=== PATIENT | female | born 1965 | race Hispanic/Latino ===

== ENCOUNTER 2020-09-20 20:38 | Emergency (ER) | payer BC ==
[~2020-09-20] VITALS: Ht 158.8 cm; Wt 68.0 kg
[~2020-09-20 20:38] MED LIST: COPAXONE20 MG/KIT SC; CYCLOBENZAPRINE10 MG PO; METHOTREXATE; TYLENOL WITH C1 EACH PO
[2020-09-20] MEDS ORDERED: KETOROLAC TROMETHAMINE 30 MG/ML VIAL IV STA (21:14)
[2020-09-20 21:24] LABS: BASOPHILS # (AUTO) 0.1 (0.0-0.1); BASOPHILS % 0.6 % (0.0-1.0); EOSINOPHILS # (AUTO) 0.2 (0.0-0.4); EOSINOPHILS % 1.4 % (0.0-6.0); HEMATOCRIT 45.3 % (34.2-44.1); HEMOGLOBIN 14.5 g/dL (12.0-16.0); LYMPHOCYTES # (AUTO) 2.1 (1.0-3.2); LYMPHOCYTES % 19.4 % (18.0-39.1); MEAN CORPUSCULAR HEMOGLOBIN 27.3 pg (28-32); MEAN CORPUSCULAR VOLUME 85.2 fL (81-99); MONOCYTES # (AUTO) 0.8 (0.2-0.8); NEUTROPHILS # (AUTO) 7.7 (2.1-6.9); NEUTROPHILS % 71.2 % (38.7-80.0); PLATELET COUNT 414 x10e3/uL (140-360); RED BLOOD COUNT 5.32 x10e6/uL (3.6-5.1); RED CELL DISTRIBUTION WIDTH 13.3 % (11.7-14.4)
[2020-09-20] MEDS ORDERED: KETOROLAC TROMETHAMINE 30 MG/ML VIAL ONE (21:25)
[2020-09-20 21:39] LABS: COLOR,URINE AMBER (YELLOW)
[2020-09-20 21:40] LABS: CLARITY,URINE CLEAR (CLEAR); KETONES,URINE NEGATIVE (NEGATIVE); LEUKOCYTE ESTERASE ,URINE TRACE (NEGATIVE); NITRITE,URINE POSITIVE (NEGATIVE); PROTEIN,URINE DIPSTICK TRACE (NEGATIVE); URINE UROBILINOGEN 1 mg/dL (0.2 - 1)
[2020-09-20 21:41] LABS: BACTERIA,URINE MODERATE /HPF; EPITHELIAL CELLS,URINE MANY /LPF; WBC,URINE (MAN) >50 /HPF (0-5)
[2020-09-20 21:43] LABS: ANION GAP 13.8 mmol/L (8-16); BLOOD UREA NITROGEN 13 mg/dL (7-26); BUN/CREATININE RATIO 16 (6-25); CALCIUM 9.2 mg/dL (8.4-10.2); CARBON DIOXIDE 25 mmol/L (22-29); CHLORIDE 105 mmol/L (98-107); CREATININE, SERUM 0.81 mg/dL (0.57-1.11); EST GLOMERULAR FILTRATION RATE > 60 ML/MIN (60-); GLUCOSE 156 mg/dL (74-118); POTASSIUM 3.8 mmol/L (3.5-5.1); SODIUM 140 mmol/L (136-145)
[2020-09-20] MEDS ORDERED: CEFTRIAXONE SOD 1 GM/50 ML BAG IV ONE (22:45)
[2020-09-20] MEDS ORDERED: CEFTRIAXONE SOD 1 GM in SODIUM CHLORIDE 0.9% 50ML 50 ML IV ONE (23:00)
[2020-09-20 23:34] VITALS: BP 145/91
== END 2020-09-20 23:38 | disposition home or self-care (01) ==
LOC: ER 21:16
DX: M54.5 Low back pain (principal); R11.0 Nausea; R30.0 Dysuria; N39.0 Urinary tract infection, site not specified; G35 Multiple sclerosis; Z87.442 Personal history of urinary calculi
CPT/HCPCS: 36415; 74176; 80048; 81001; 85025; 99284; J0696; J1885

== ENCOUNTER 2021-07-22 18:30 | Emergency (ER) | payer BC ==
[~2021-07-22] VITALS: Ht 158.8 cm; Wt 68.0 kg
[2021-07-22] MEDS ORDERED: KETOROLAC TROME10 MG PEG (18:53)
[2021-07-22] MEDS ORDERED: PREDNISONE50 MG PO (18:53)
[2021-07-22] MEDS ORDERED: METHOCARBAMOL750 MG PO (18:53)
[2021-07-22] MEDS ORDERED: DEXAMETHASONE SOD PHOS 10 MG/1 ML VIAL ONE (18:59)
[2021-07-22] MEDS ORDERED: DEXAMETHASONE SOD PHOS 10 MG/1 ML VIAL IM ONE (19:00)
== END 2021-07-22 19:00 | disposition home or self-care (01) ==
LOC: ER 18:35
DX: M54.12 Radiculopathy, cervical region (principal); G35 Multiple sclerosis; Z87.442 Personal history of urinary calculi
CPT/HCPCS: 99282; J1100

== ENCOUNTER 2024-08-03 20:29 | Emergency (ER) | payer BC, OTHER ==
[~2024-08-03] VITALS: Ht 158.8 cm; Wt 75.7 kg
[~2024-08-03 20:29] MED LIST changes: +KETOROLAC TROME10 MG PEG; +METHOCARBAMOL750 MG PO; +PREDNISONE50 MG PO
[2024-08-03 20:40] VITALS: PULSE 76; RESP 19; TEMP 98.2
[2024-08-03] MEDS: METOCLOPRAMIDE HCL 10 MG/2ML VIAL IV STA (21:22)
[2024-08-03] MEDS: SODIUM CHLORIDE 0.9% 1000ML 1,000 ML IV STA (21:22)
[2024-08-03] MEDS: METHYLPREDNISOLONE SOD SUCC 125 MG/2ML VIAL IV STA (21:23)
[2024-08-03] MEDS: KETOROLAC TROMETHAMINE 30 MG/ML VIAL IV STA (21:23)
[2024-08-03] MEDS: DIPHENHYDRAMINE HCL INJ 50 MG/ML VIAL IV STA (21:23)
[2024-08-03 23:58] VITALS: BP 156/92; PULSE 68; RESP 18; TEMP 98.3; O2SAT 98
== END 2024-08-03 23:50 | disposition home or self-care (01) ==
LOC: ER 20:37
DX: S06.0X0A Concussion without loss of consciousness, initial encounter (principal); W01.198A Fall on same level from slipping, tripping and stumbling with subsequent striking against other object, initial encounter; Y93.01 Activity, walking, marching and hiking; Y92.89 Other specified places as the place of occurrence of the external cause; G35 Multiple sclerosis; L40.9 Psoriasis, unspecified; Z87.442 Personal history of urinary calculi
CPT/HCPCS: 70450; 72125; 99284; J1200; J1885; J2765; J2919; J7030